=== PATIENT | male | born 1950 | race Caucasian/White ===

== ENCOUNTER 2017-09-10 12:13 | Day surgery (SDC) | payer MEDICARE, OTHER ==
[~2017-09-10] VITALS: Ht 172.7 cm; Wt 86.3 kg
== END 2017-09-10 14:20 | disposition home or self-care (01) ==
LOC: ORSCSDS 12:13
PROVIDERS: Internal Medicine Gastroenterology
PROC: 0DBM8ZX Excision of Descending Colon, Via Natural or Artificial Opening Endoscopic, Diagnostic (ICD-10-PCS; principal; 2017-09-10 13:30)
PROC: 0DBB8ZX Excision of Ileum, Via Natural or Artificial Opening Endoscopic, Diagnostic (ICD-10-PCS; principal; 2017-09-10 13:30)
DX: Z12.11 Encounter for screening for malignant neoplasm of colon (principal); Z86.010 Personal history of colon polyps; D12.4 Benign neoplasm of descending colon; K57.30 Diverticulosis of large intestine without perforation or abscess without bleeding; K64.8 Other hemorrhoids; E78.5 Hyperlipidemia, unspecified; Z87.891 Personal history of nicotine dependence
CPT/HCPCS: 88305; 93005; 93010; J7120

== ENCOUNTER 2021-09-05 08:36 | Day surgery (SDC) | payer MEDICARE, OTHER ==
[~2021-09-05] VITALS: Ht 172.7 cm; Wt 86.3 kg
[2021-09-05] MEDS ORDERED: Aspir 8181 MG PO (10:08)
[2021-09-05] MEDS ORDERED: GLUC500 PO (10:08)
[2021-09-05] MEDS ORDERED: Vitamin D1000 UNI1 (10:09)
[2021-09-05] MEDS ORDERED: MULVITA (10:09)
[2021-09-05] MEDS ORDERED: ZINC15 (10:10)
--- NOTE | 2021-09-05 13:30 | NUR ---
09/05/21 Renée Sandoval 0.25ML OF EPI 1MG/ML ADDED TO 50ML OF NACL TO CREATE A SOLUTION OF NACL WITH EPI 1:200,000.
== END 2021-09-05 16:10 | disposition home or self-care (01) ==
LOC: ORSCSDS 08:36
PROVIDERS: Otolaryngology
PROC: 0CBH0ZX Excision of Left Submaxillary Gland, Open Approach, Diagnostic (ICD-10-PCS; principal; 2021-09-05 10:00)
DX: K11.5 Sialolithiasis (principal); I48.91 Unspecified atrial fibrillation; G47.33 Obstructive sleep apnea (adult) (pediatric); Z87.891 Personal history of nicotine dependence; Z79.82 Long term (current) use of aspirin; Z79.899 Other long term (current) drug therapy
CPT/HCPCS: 88305; J0171; J1100; J2370; J2405; J2704; J3010; J7120

== ENCOUNTER 2024-04-17 22:41 | Emergency (ER) | payer MEDICARE, OTHER ==
[~2024-04-17] VITALS: Ht 172.7 cm; Wt 81.7 kg
[~2024-04-17 22:41] MED LIST: Aspir 8181 MG PO; GLUC500 PO; MULVITA; Vitamin D1000 UNI1; ZINC15
[2024-04-17] MEDS ORDERED: XARELTO20 M1 PO (23:15)
[2024-04-17] MEDS ORDERED: SOTALOL8011 PO (23:15)
[2024-04-17] MEDS ORDERED: Lutein6 MG PO (23:16)
[2024-04-18 00:25] LABS: BASOPHILS ABSOLUTE AUTO 0.04 K/mm3 (0.00-0.23); BASOPHILS PERCENT AUTO 1 % (0-2); EOSINOPHILS ABSOLUTE AUTO 0.11 K/mm3 (0.00-0.68); EOSINOPHILS PERCENT AUTO 2 % (0-6); Hematocrit 40.1 % (37.0-53.0); Hemoglobin 13.3 g/dL (13.5-17.5); IMMATURE GRAN ABSOLUTE AUTO 0.02 K/mm3 (0.00-0.10); IMMATURE GRAN PERCENT AUTO 0 % (0-1); LYMPHOCYTES ABSOLUTE AUTO 1.81 K/mm3 (0.84-5.20); LYMPHOCYTES PERCENT AUTO 25 % (21-46); MONOCYTES ABSOLUTE AUTO 0.75 K/mm3 (0.16-1.47); MONOCYTES PERCENT AUTO 10 % (4-13); Mean Corpuscular HGB 30.4 pg (26.0-34.0); Mean Corpuscular HGB Conc 33.2 g/dL (31.5-36.5); Mean Corpuscular Volume 92 fL (80-100); Mean Platelet Volume 9.9 fL (9.1-12.4); NEUTROPHILS ABSOLUTE AUTO 4.45 K/mm3 (1.96-9.15); NEUTROPHILS PERCENT AUTO 62 % (41-73); Platelet Count 154 K/mm3 (150-400); RDW Coefficient Variation 13.9 % (11.7-14.2); RDW Standard Deviation 47.1 fL (35.1-46.3); Red Blood Cell Count 4.37 M/mm3 (4.30-5.90); White Blood Cell Count 7.18 K/mm3 (4.00-11.30)
[2024-04-18] MEDS ORDERED: Diltiazem HCl 5 MG / ML 5ML Vial IV ONE (00:40)
[2024-04-18 01:01] LABS: Albumin, Blood 3.3 g/dL (3.4-5.0); Albumin/Globulin Ratio 1.1 (0.8-1.8); Bilirubin, Total 1.3 mg/dL (0.1-1.0); Bun/Creatinine Ratio 22.9 (12.0-20.0); Calcium, Blood 8.7 mg/dL (8.5-10.1); Creatinine, Blood 1.05 mg/dL (0.60-1.20); Potassium, Blood 4.6 mmol/L (3.5-5.5); Total Protein, Blood 6.3 g/dL (6.4-8.2)
[2024-04-18 02:45] VITALS: BP 112/80
== END 2024-04-18 03:15 | disposition home or self-care (01) ==
LOC: ER 22:41
PROVIDERS: Student in an Organized Health Care Education/Training Program
DX: I48.91 Unspecified atrial fibrillation (principal); Z87.891 Personal history of nicotine dependence; Z79.899 Other long term (current) drug therapy
CPT/HCPCS: 71045; 80053; 84484; 85025; 93005; 93010; 99285-25

== ENCOUNTER 2024-08-04 11:25 | Day surgery (SDC) | payer MEDICARE, OTHER ==
[~2024-08-04] VITALS: Ht 172.7 cm; Wt 82.3 kg
[~2024-08-04 11:25] MED LIST changes: +Lactated Ringer's 1,000 ML IV ONE; +Lutein6 MG PO; +SOTALOL8011 PO; +XARELTO20 M1 PO; +propofoL 50 ML IV ONE
[2024-08-04] MEDS ORDERED: DILTIAZEM 24HR120 M4 (11:58)
[2024-08-04] MEDS ORDERED: Lactated Ringer's 1,000 ML IV ONE (12:45)
[2024-08-04 14:05] VITALS: BP 127/82
== END 2024-08-04 14:08 | disposition home or self-care (01) ==
LOC: ORSCSDS 11:25
PROVIDERS: Specialist
PROC: 0DBN8ZX Excision of Sigmoid Colon, Via Natural or Artificial Opening Endoscopic, Diagnostic (ICD-10-PCS; principal; 2024-08-04 13:00)
DX: Z12.11 Encounter for screening for malignant neoplasm of colon (principal); Z86.0101 Personal history of adenomatous and serrated colon polyps; D12.5 Benign neoplasm of sigmoid colon; K64.8 Other hemorrhoids; K57.30 Diverticulosis of large intestine without perforation or abscess without bleeding; G47.33 Obstructive sleep apnea (adult) (pediatric); Z79.01 Long term (current) use of anticoagulants; Z79.899 Other long term (current) drug therapy
CPT/HCPCS: 88305; J2704; J7120

== ENCOUNTER 2025-03-08 07:53 | Day surgery (SDC) | payer MEDICARE ==
[2025-03-08] VITALS (12 sets, daily range): BP systolic 98–149; BP diastolic 65–118
[~2025-03-08] VITALS: Ht 170.2 cm; Wt 84.9 kg
[~2025-03-08 07:53] MED LIST changes: +CARTIA XT120 M9 PO; +CeFAZolin Sodium 2,000 MG in NS 100 ML IV SCH; +Chlorhexidine Mouth Care 15 ML UDC MT SCH; +DILTIAZEM 24HR120 M2 PO; +DILTIAZEM 24HR120 M4; -Lactated Ringer's 1,000 ML IV ONE; +Lisinopril2.5 MG PO; +MULTI-VITAMIN1 EAC2 PO; -MULVITA; +OCUVITE BLUE L1 EACH PO; +Ropivacaine 0.5% HCl/Pf 123.125 MG,EPINEPHrine HCL 0.25 MG,Ketorolac Tromethamine 15 MG... INFIL SCH; +Tranexamic Acid 100 ML IV SCH; +VITAMIN C125 MG PO; +VITAMIN D310 MC1 PO; -Vitamin D1000 UNI1; -propofoL 50 ML IV ONE
[2025-03-08] MEDS ORDERED: ePHEDrine Sulfate 50 MG/ML 1ML Injection IV PRN (09:05)
[2025-03-08] MEDS ORDERED: FentaNYL Citrate 50 MCG/ML 2 ML Injection IV PRN ×2 (09:05→09:10)
[2025-03-08] MEDS ORDERED: HydrALAZINE HCl 20 MG / ML 1ML Vial IV PRN (09:10)
[2025-03-08] MEDS ORDERED: Ondansetron HCl 2 MG / ML 2ML Vial IV PRN ×2 (09:10→11:15)
[2025-03-08] MEDS ORDERED: HYDROmorphone HCl/Pf 1MG SYR IV PRN ×3 (09:10→11:20)
[2025-03-08] MEDS ORDERED: Midazolam HCl 1MG / ML 2ML Vial ONE (09:20)
[2025-03-08] MEDS ORDERED: FentaNYL Citrate 50 MCG/ML 2 ML Injection ONE (09:20)
[2025-03-08] MEDS ORDERED: CeFAZolin Sodium 2,000 MG VIAL ONE (09:29)
[2025-03-08] MEDS ORDERED: Magnesium Hydroxide Conc 10 ML UDC PO PRN (11:15)
[2025-03-08] MEDS ORDERED: Metoclopramide HCl 5MG / ML 2ML Vial IV PRN (11:20)
[2025-03-08] MEDS ORDERED: Phenylephrine HCl 100 MCG/ML-NS 10MLSYR (1MG/10ML) ONE (11:22)
[2025-03-08] MEDS ORDERED: Ondansetron HCl 2 MG / ML 2ML Vial ONE (11:22)
[2025-03-08] MEDS ORDERED: Dexamethasone Sod Phos 10 MG/ML 1ML VIAL ONE (11:22)
[2025-03-08] MEDS ORDERED: Ketorolac Tromethamine 15mg Vial IV SCH (12:00)
--- NOTE | 2025-03-08 13:34 | NUR ---
PT ARRIVES TO SURGICAL UNIT AT APPROX 1320. HE IS A/OX4 DENIES PAIN. VSS. SEE EXT RECOVERY ASSESSMENT
[2025-03-08] MEDS ORDERED: CeFAZolin Sodium 2,000 MG in NS 100 ML IV SCH (18:00)
--- NOTE | 2025-03-08 18:02 | NUR ---
DISCHARGE NOTE: PT ABLE TO TOLERATE PO INTAKE AND VOID WITHOUT DIFFICULTY. HE AMBULATES DOWN THE ADEN AND BACK WITH A STEADY EVEN GAIT. HIS PAIN IS MANAGED PER EMAR. PT DENIES ANY N/V. PIV REMOVED PRIOR TO DISCHARGE. PT'S TO DRIVE HOME. PT AND STATE UNDERSTANDING OF DISCHARGE INSTRUCTIONS
== END 2025-03-08 17:45 | disposition home or self-care (01) ==
LOC: ORSCMMR 07:53 → ORD 09:15 → ORSCMMR 09:15 → SURS 13:28 → ORSCMMR 17:45
PROVIDERS: Orthopaedic Surgery
PROC: 0SRC0JA Replacement of Right Knee Joint with Synthetic Substitute, Uncemented, Open Approach (ICD-10-PCS; principal; 2025-03-08 09:15)
DX: M17.11 Unilateral primary osteoarthritis, right knee (principal); I10 Essential (primary) hypertension; I48.91 Unspecified atrial fibrillation; E78.5 Hyperlipidemia, unspecified; G47.33 Obstructive sleep apnea (adult) (pediatric); E66.9 Obesity, unspecified; Z68.29 Body mass index [BMI] 29.0-29.9, adult; Z79.01 Long term (current) use of anticoagulants; Z79.899 Other long term (current) drug therapy
CPT/HCPCS: 73560-RT; A9270; C1713; C1776; J0166; J0690; J0735; J1100; J1885; J2250; J2371; J2405; J2704; J2795; J3010; J7120

== ENCOUNTER 2025-05-03 06:43 | Day surgery (SDC) | payer MEDICARE, OTHER ==
[~2025-05-03] VITALS: Ht 177.8 cm; Wt 82.0 kg
[2025-05-03] VITALS (11 sets, daily range): BP systolic 104–128; BP diastolic 68–90
[~2025-05-03 06:43] MED LIST changes: +ALIVE VITAMIN PO; +ERGO400 PO; +Percocet 5-3251 EACH PO
[2025-05-03] MEDS ORDERED: CeFAZolin Sodium 2,000 MG VIAL ONE (06:59)
--- NOTE | 2025-05-03 07:50 | NUR ---
History, Chart, Medications and Allergies reviewed before start of procedure.Patient confirms NPO status and agrees with scheduled surgery. Pre-Op teaching done. Pt verbalizes understanding. AT BEDSIDE
--- NOTE | 2025-05-03 08:22 | NUR ---
AMBULATE TO BR VOIDED
[2025-05-03] MEDS ORDERED: Dexamethasone Sod Phos 10 MG/ML 1ML VIAL ONE (09:18)
[2025-05-03] MEDS ORDERED: Metoclopramide HCl 5MG / ML 2ML Vial IV PRN (09:35)
[2025-05-03] MEDS ORDERED: HYDROmorphone HCl/Pf 1MG SYR IV PRN ×3 (09:35→10:10)
[2025-05-03] MEDS ORDERED: Magnesium Hydroxide Conc 10 ML UDC PO PRN (09:35)
[2025-05-03] MEDS ORDERED: Ondansetron HCl 2 MG / ML 2ML Vial IV PRN ×2 (09:35→10:05)
[2025-05-03] MEDS ORDERED: Phenylephrine HCl 100 MCG/ML-NS 10MLSYR (1MG/10ML) ONE (09:43)
[2025-05-03] MEDS ORDERED: FLU VACC TS2025(65UP)/MF59C/PF 45 MCG/0.5 ML SYRINGE IM SCH (09:50)
[2025-05-03] MEDS ORDERED: FentaNYL Citrate 50 MCG/ML 2 ML Injection IV PRN ×2 (10:05→10:10)
--- NOTE | 2025-05-03 11:15 | NUR ---
ARRIVAL TO SURG FLOOR TO FLOOR VIA HOSP BED. A&O x4, VSS. L KNEE w/TEFLA & TEGADERM, C/D/I. POLAR PACK IN PLACE. UNABLE TO WIGGLE TOES OR MOVE LEGS DUE TO SPINAL. IVF INFUSING. AWAITING POST OP VOID. SNACKS & DRINKS GIVEN. CURRENTLY RESTING IN BED w/CALL LIGHT WITHIN REACH.
--- NOTE | 2025-05-03 16:54 | NUR ---
DISCHARGE SUMMARY S/P L TKA. A&O x4, VSS. TOLERATING FOOD & FLUIDS WELL. L KNEE w/TEFLA & TEGADERM, NO DRAINAGE, C/D/I. WORKED w/THERAPY - AMBULATED IN HALLWAY & ROOM. VOIDED SUCCESSFULLY. STATES NO PAIN TODAY. DISCHARGE INSTRUCTIONS REVIEWED & GIVEN. POLAR PACK SENT. ESCORTED OUT VIA WC.
[2025-05-03] MEDS ORDERED: CeFAZolin Sodium 2,000 MG in NS 100 ML IV SCH (17:00)
[2025-05-03] MEDS ORDERED: Ketorolac Tromethamine 15mg Vial IV SCH (18:00)
[2025-05-04] MEDS ORDERED: Beta-Carotene (A) W-C & E/Min 1 Tab PO SCH (09:00)
[2025-05-04] MEDS ORDERED: Ascorbic Acid 250 MG Chew PO SCH (09:00)
[2025-05-04] MEDS ORDERED: Multivitamins 1 Tab PO SCH (09:00)
== END 2025-05-03 16:45 | disposition home or self-care (01) ==
LOC: ORSCMMR 06:43 → ORD 08:15 → SURS 11:16 → ORSCMMR 16:45
PROVIDERS: Orthopaedic Surgery
PROC: 0SRD0JA Replacement of Left Knee Joint with Synthetic Substitute, Uncemented, Open Approach (ICD-10-PCS; principal; 2025-05-03 08:15)
DX: M17.12 Unilateral primary osteoarthritis, left knee (principal); I10 Essential (primary) hypertension; I48.91 Unspecified atrial fibrillation; Z79.01 Long term (current) use of anticoagulants; G47.33 Obstructive sleep apnea (adult) (pediatric); Z96.651 Presence of right artificial knee joint; Z79.899 Other long term (current) drug therapy
CPT/HCPCS: 73560-LT; 97116; 97161; 97530; A9270; C1713; C1776; J0166; J0690; J0735; J1100; J1885; J2371; J2704; J2795; J7120